=== PATIENT | female | born 1950 ===

== ENCOUNTER → 2020-09-15 | Outpatient (CLI) | payer MEDICARE ==
[~2020-09-15] MED LIST: OMNIPAQUE 350 MG/ML, 100ML BOTTLE ONE
== END | disposition home or self-care (01) ==
LOC: RAD 16:40
PROVIDERS: ATTEND Nurse Practitioner Family
DX: N85.8 Other specified noninflammatory disorders of uterus (principal); R10.84 Generalized abdominal pain; K92.1 Melena
CPT/HCPCS: 74177; Q9967